=== PATIENT | female | born 1970 | race Two or more races ===

== ENCOUNTER → 2017-11-14 | Outpatient (CLI) | payer BC | END | disposition home or self-care (01) | LOC: US 15:38 | DX: E03.9 Hypothyroidism, unspecified (principal) | CPT/HCPCS: 76536 ==

== ENCOUNTER → 2017-12-16 | Outpatient (CLI) | payer BC | END | disposition home or self-care (01) | LOC: ECHO 12:24 | DX: I36.1 Nonrheumatic tricuspid (valve) insufficiency (principal); R94.31 Abnormal electrocardiogram [ECG] [EKG] | CPT/HCPCS: 93017; 93306; 93350 ==

== ENCOUNTER 2018-10-07 21:03 | Emergency (ER) | payer BC ==
[~2018-10-07] VITALS: Ht 160 cm; Wt 86.2 kg
[2018-10-07 21:10] VITALS: BP 139/79
[2018-10-07] MEDS ORDERED: TETRACAINE 0.5% OPHTH SOLUTION 4ML BOTTLE. ONE (21:38)
[2018-10-07] MEDS ORDERED: FLUORESCEIN OPHTH TEST STRIP. ONE (21:38)
--- NOTE | 2018-10-07 21:44 | PHYS DOC ---
Past Medical History Past Medical History: Hyperthyroid Past Surgical History: , Hysterectomy Alcohol Use: None Drug Use: None Adult General Chief Complaint Chief Complaint: EYE PROBLEMS HPI HPI 48-year-old female presents with some left eye discomfort. She states that she accidentally put a drop of tooth Hermila in her left eye thinking it was something for allergies. She has a burning sensation since. She has not had any visual disturbance.[] Review of Systems Review of Systems Constitutional: Denies fever or chills [] Eyes: Left eye pain[] HENT: Denies nasal congestion or sore throat [] Respiratory: Denies cough or shortness of breath [] Cardiovascular: No additional information not addressed in HPI [] All other systems were reviewed and found to be within normal limits, except as documented in this note. Current Medications Current Medications Current Medications Medications (Trade) Dose Ordered Sig/Deirdre Start Time Stop Time Status Last Admin Dose Admin Fluorescein Sodium (Ful-Mayra) 1 strip STK-MED ONCE 10/07/18 21:38 10/07/18 21:39 DC Tetracaine HCl (Tetracaine) 40 drop STK-MED ONCE 10/07/18 21:38 10/07/18 21:39 DC Allergies Allergies Allergies Coded Allergies Type Severity Reaction Last Updated Verified No Known Drug Allergies 10/07/18 No Physical Exam Physical Exam Constitutional: Well developed, well nourished, mild distress, non-toxic appearance. [] HENT: Conjunctiva is injected on the left pupils equal round reactive to light. [] Eyes: PERRLA, EOMI, conjunctiva normal, no discharge. [] Neck: Normal range of motion, no tenderness, supple, no stridor. [] Cardiovascular:Heart rate regular rhythm, no murmur [] Lungs & Thorax: Bilateral breath sounds clear to auscultation [] Abdomen: Bowel sounds normal, soft, no tenderness, no masses, no pulsatile masses. [] Skin: Warm, dry, no erythema, no rash. [] Back: No tenderness, no CVA tenderness. [] Extremities: No tenderness, no cyanosis, no clubbing, ROM intact, no edema. [] Neurologic: Alert and oriented X 3, normal motor function, normal sensory function, no focal deficits noted. [] Psychologic: Anxious. [] Current Patient Data Vital Signs Vital Signs Date Time Temp Pulse Resp B/P (MAP) Pulse Ox O2 Delivery O2 Flow Rate FiO2 10/07/18 21:10 98.5 74 18 139/79 (99) 98 Room Air 98.5 EKG EKG [] Radiology/Procedures Radiology/Procedures [] Course & Med Decision Making Course & Med Decision Making Pertinent Labs and Imaging studies reviewed. (See chart for details) [ED course: Patient's left eye was vigorously irrigated with water in the department.] Dragon Disclaimer Dragon Disclaimer This electronic medical record was generated, in whole or in part, using a voice recognition dictation system. Departure Departure Impression: Primary Impression: Chemical conjunctivitis of left eye Disposition: HOME, SELF-CARE Condition: STABLE Referrals: NO PCP (PCP) Patient Instructions: Conjunctivitis, Chemical Additional Instructions: As we discussed, go home and continue to irrigate your eye with shower water. I suggest she use Visine 2-3 times daily. Return to the emergency room with any new or concerning symptoms MAGGIE FORTUNE DO Oct 07, 2018 21:44
[2018-10-07] MEDS ORDERED: TETRACAINE 0.5% OPHTH SOLUTION 4ML BOTTLE. OS ONE (22:00)
== END 2018-10-07 21:57 | disposition home or self-care (01) ==
LOC: ER 21:03
DX: H10.212 Acute toxic conjunctivitis, left eye (principal); E03.9 Hypothyroidism, unspecified; Z98.890 Other specified postprocedural states; Z90.710 Acquired absence of both cervix and uterus
CPT/HCPCS: 99282